=== PATIENT | female | born 1985 | race African-American/Black ===

== ENCOUNTER 2021-02-16 21:27 | Emergency (ER) | payer OTHER ==
[2021-02-16 21:45] VITALS: TEMP 98.8; BMI 42.2
[2021-02-17 01:27] VITALS: BP 138/90; PULSE 74
== END 2021-02-17 01:28 | disposition home or self-care (01) ==
LOC: JER 21:27
DX: U07.1 COVID-19 (principal)
CPT/HCPCS: 71046-TC-FY; 99283-25; C9803; U0003; U0005